=== PATIENT | female | born 2000 | race American Indian/Alaskan Native ===

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

== ENCOUNTER 2022-03-11 08:52 | Outpatient (CLI) | payer OTHER ==
[2022-03-11 09:31] LABS: Basophils # (Auto) 0.1 K/mm3 (0.0-0.1); Basophils % (Auto) 0.8 % (0.0-1.8); Eosinophils # (Auto) 0.3 K/mm3 (0.0-0.4); Eosinophils % (Auto) 4.1 % (0.0-4.3); Hematocrit 42.9 % (30.3-42.9); Hemoglobin 14.4 gm/dl (10.1-14.3); Lymphocytes # (Auto) 1.9 K/mm3 (1.2-5.4); Mean Corpuscular HGB Conc 34 % (30-34); Mean Corpuscular Volume 89 fl (79-97); Monocytes # (Auto) 0.4 K/mm3 (0.0-0.8); Monocytes % (Auto) 6.9 % (0.0-7.3); Platelet Count 284 K/mm3 (140-440); Red Cell Distribution Width 13.3 % (13.2-15.2)
[2022-03-11 09:50] LABS: Alanine Aminotransferase 17 units/L (7-56); Albumin 4.9 g/dL (3.9-5); Blood Urea Nitrogen 12 mg/dL (7-17); Calcium 9.7 mg/dL (8.4-10.2); Chol/HDL Ratio 1.95 %; HDL Cholesterol 61 mg/dL (40-59); Hemolysis Index 8; LDL Cholesterol,Direct 59 mg/dL (50-130); Uric Acid 5.3 mg/dL (3.5-7.6)
[2022-03-11 10:01] LABS: BUN/Creatinine Ratio 24
[2022-03-11 10:10] LABS: Erythrocyte Sedimentation Rate 9 mm/Hr (0-20)
[2022-03-13 15:05] LABS: Vitamin D, 25-OH, D2 <4 ng/mL
== END 2022-03-11 08:53 | disposition home or self-care (01) ==
LOC: LAB 08:52
PROVIDERS: ATTEND Internal Medicine
DX: Z00.00 Encounter for general adult medical examination without abnormal findings (principal); R53.83 Other fatigue; E55.9 Vitamin D deficiency, unspecified; M13.0 Polyarthritis, unspecified
CPT/HCPCS: 36415; 80053; 80061; 82306; 84443; 84550; 85025; 85652; 86038; 86140; 86431